=== PATIENT | female | born 1965 | race Two or more races ===

== ENCOUNTER → 2017-10-12 | Emergency (ER) | payer OTHER ==
[~2017-10-12] VITALS: Ht 165.1 cm; Wt 73.0 kg
[~2017-10-12] MED LIST: AMBIEN10 MG; FOLIC ACID1 MG; LEUCOVORIN CALCI5 MG PO; METHOTREXATE SC; METHOTREXATE2.5 MG; NABUMETONE500 MG PO; ORENCIA125 MG/1 M; PAXIL CR25 MG; PERCOCET 5/3251 TAB PO; PREVACID30 MG PO; PROTONIX40 MG; SIMPONI50 MG/0.5 SUBCUTANEO; WELLBUTRIN SR150 MG
== END | disposition home or self-care (01) ==
LOC: ER 19:43
DX: B34.9 Viral infection, unspecified (principal)

== ENCOUNTER 2019-01-17 09:15 | Inpatient (IN) | payer OTHER ==
[~2019-01-17] VITALS: Ht 165.1 cm; Wt 105.7 kg
[2019-01-19] MEDS ORDERED: PAXIL PO (13:41)
[2019-01-19] MEDS ORDERED: CLONAZEP (13:42)
[2019-01-19] MEDS ORDERED: ZANTAC300 MG PO (13:42)
[2019-01-19] MEDS ORDERED: ULTRACET PO ×2 (13:43→13:44)
[2019-02-01] MEDS ORDERED: ULTRACET PO (07:57)
[2019-02-01] MEDS ORDERED: PAXIL CR25 MG PO (07:58)
[2019-02-01] MEDS ORDERED: CLONAZEPAM1 MG (07:58)
== END 2019-02-03 19:54 | DRG 470 ==
LOC: SURH 02-01 06:43 → O/R 02-01 06:43 → RECOVERY 02-01 10:45 → SURH 02-01 11:40 → O/R 02-01 13:22 → RECOVERY 02-01 13:30 → SURH 02-01 16:11
PROVIDERS: ADMIT Orthopaedic Surgery
PROC: 0SRD0J9 Replacement of Left Knee Joint with Synthetic Substitute, Cemented, Open Approach (ICD-10-PCS; principal; 2019-02-01 13:30)
DX: M17.12 Unilateral primary osteoarthritis, left knee (principal); J45.902 Unspecified asthma with status asthmaticus; D62 Acute posthemorrhagic anemia; J22 Unspecified acute lower respiratory infection; I10 Essential (primary) hypertension; Z96.653 Presence of artificial knee joint, bilateral

== ENCOUNTER 2019-06-07 20:11 | Emergency (ER) | payer OTHER ==
[~2019-06-07] VITALS: Ht 165.1 cm; Wt 110.2 kg
[~2019-06-07 20:11] MED LIST changes: +CLONAZEP; +CLONAZEPAM1 MG; +PAXIL CR25 MG PO; +PAXIL PO; +ULTRACET PO; +ZANTAC300 MG PO
[2019-06-07] MEDS ORDERED: ACTEMRA162 MG/0.9 (20:31)
[2019-06-07] MEDS ORDERED: PERCOCET 10-321 EACH (20:31)
[2019-06-08] MEDS ORDERED: MOBIC15 MG PO (07:30)
[2019-06-08] MEDS ORDERED: NORFLEX100MG PO (07:30)
== END 2019-06-08 07:49 | disposition home or self-care (01) ==
LOC: ER 20:11
DX: S60.572A Other superficial bite of hand of left hand, initial encounter (principal); R10.12 Left upper quadrant pain; M54.5 Low back pain; W54.0XXA Bitten by dog, initial encounter; Y93.89 Activity, other specified; Y92.89 Other specified places as the place of occurrence of the external cause; Y99.8 Other external cause status

== ENCOUNTER 2021-08-20 14:27 | Emergency (ER) | payer OTHER ==
[~2021-08-20] VITALS: Ht 152.4 cm; Wt 116.1 kg
[~2021-08-20 14:27] MED LIST changes: +ACTEMRA162 MG/0.9; +MOBIC15 MG PO; +NORFLEX100MG PO; +PERCOCET 10-321 EACH
[2021-08-20] MEDS ORDERED: BUPROPION HCL200 M1 PO (14:44)
== END 2021-08-20 18:19 | disposition home or self-care (01) ==
LOC: ER 14:27
DX: J45.909 Unspecified asthma, uncomplicated (principal); Z88.0 Allergy status to penicillin; Z88.2 Allergy status to sulfonamides

== ENCOUNTER 2022-06-17 14:11 | Outpatient (CLI) | payer OTHER ==
[~2022-06-17 14:11] MED LIST changes: +BUPROPION HCL200 M1 PO
== END 2022-06-17 14:12 | disposition home or self-care (01) ==
LOC: RAD 14:11
PROVIDERS: ATTEND Orthopaedic Surgery
DX: M25.511 Pain in right shoulder (principal)

== ENCOUNTER 2022-08-21 18:27 | Emergency (ER) | payer OTHER ==
[~2022-08-21] VITALS: Ht 162.6 cm; Wt 70.3 kg
== END 2022-08-21 22:14 | disposition home or self-care (01) ==
LOC: ER 18:27
DX: M77.8 Other enthesopathies, not elsewhere classified (principal); Z88.0 Allergy status to penicillin; Z88.2 Allergy status to sulfonamides

== ENCOUNTER 2023-02-25 11:10 | Emergency (ER) | payer OTHER ==
[~2023-02-25] VITALS: Ht 162.6 cm; Wt 115.2 kg
[2023-02-25] MEDS ORDERED: UBRELVY100 MG PO (11:49)
[2023-02-25] MEDS ORDERED: EMGALITY S120 MG/1 M SQ (11:49)
[2023-02-25] MEDS ORDERED: INDERAL XL80 MG (11:49)
== END 2023-02-25 14:52 | disposition home or self-care (01) ==
LOC: ER 11:10
DX: G43.909 Migraine, unspecified, not intractable, without status migrainosus (principal); Z88.0 Allergy status to penicillin; Z88.2 Allergy status to sulfonamides

== ENCOUNTER → 2023-08-17 | Emergency (ER) | payer OTHER ==
[~2023-08-17] VITALS: Ht 165.1 cm; Wt 112.0 kg
[~2023-08-17] MED LIST changes: +EMGALITY S120 MG/1 M SQ; +INDERAL XL80 MG; +UBRELVY100 MG PO
== END | disposition left against medical advice (07) ==
LOC: ER 20:48
DX: Z53.21 Procedure and treatment not carried out due to patient leaving prior to being seen by health care provider (principal)

== ENCOUNTER 2024-01-14 14:36 | Outpatient (CLI) | payer OTHER | END 2024-01-14 14:43 | disposition home or self-care (01) | LOC: RAD 14:36 | PROVIDERS: ATTEND Orthopaedic Surgery | DX: S92.352G Displaced fracture of fifth metatarsal bone, left foot, subsequent encounter for fracture with delayed healing (principal); S82.65XD Nondisplaced fracture of lateral malleolus of left fibula, subsequent encounter for closed fracture with routine healing ==

== ENCOUNTER 2024-01-15 09:35 | Outpatient (CLI) | payer OTHER | END 2024-01-15 09:52 | disposition home or self-care (01) | LOC: TOM 09:35 | PROVIDERS: ATTEND Orthopaedic Surgery | DX: S92.352G Displaced fracture of fifth metatarsal bone, left foot, subsequent encounter for fracture with delayed healing (principal); S82.65XD Nondisplaced fracture of lateral malleolus of left fibula, subsequent encounter for closed fracture with routine healing ==

== ENCOUNTER 2024-01-25 09:05 | Outpatient (CLI) | payer OTHER ==
[2024-01-25 10:18] LABS: HEMATOCRIT 42.3 % (36.0-45.00); HEMOGLOBIN 14.6 g/dL (12.0-15.00); MEAN CORPUSCULAR HEMOGLOBIN 35.5 pg (27.00-32.0); MEAN CORPUSCULAR HGB CONC 34.4 g/dl (32.0-36.0); PLATELET COUNT 219 K/uL (150-450); RED CELL DISTRIBUTION WIDTH 12.8 % (11.5-14.5)
[2024-01-25 10:36] LABS: ALBUMIN 3.9 gm/dL (3.4-5.0); BILIRUBIN TOTAL 0.52 mg/dL (0.3-1.2); CALCIUM 9.9 mg/dL (8.5-10.1); CREATININE SERUM 0.81 mg/dL (0.55-1.02); GFR 71.88; GLOBULINA 3.4 G/DL (2.4-3.5); POTASSIUM 4.24 mEq/L (3.5-5.1); TOTAL PROTEIN 7.3 gm/dL (6.4-8.2)
[2024-01-25 10:40] LABS: INR 1.05
[2024-01-25 11:13] LABS: COL EPI 81 SECONDS (82-175)
[2024-01-25 11:32] LABS: URINE APPEARANCE Clear; URINE BILIRRUBIN Negative (NEGATIVE); URINE BLOOD Negative; URINE COLOR Yellow; URINE GLUCOSE Negative (NEGATIVE); URINE LEUKOCYTE Trace; URINE NITRATE Negative; URINE PROTEIN Negative (NEGATIVE); URINE UROBILINOGEN 0.2 E.U./dl
[2024-01-25 11:33] LABS: URINE BACTERIA 31.4 uL (0.0-1933); URINE EPITHELIAL CELLS 17.1 uL (0.0-38.8); URINE RBC 3.9 uL (0.0-20.8)
== END 2024-01-25 09:06 | disposition home or self-care (01) ==
LOC: RAD 09:05 → LAB 09:05 → RAD 09:06
PROVIDERS: ATTEND Orthopaedic Surgery
DX: D64.9 Anemia, unspecified (principal); E88.89 Other specified metabolic disorders; D68.8 Other specified coagulation defects; N39.0 Urinary tract infection, site not specified; Z22.322 Carrier or suspected carrier of Methicillin resistant Staphylococcus aureus; E11.9 Type 2 diabetes mellitus without complications; I10 Essential (primary) hypertension; Z76.89 Persons encountering health services in other specified circumstances

== ENCOUNTER → 2024-02-08 12:04 | Outpatient (CLI) | payer OTHER ==
[~2024-02-08 12:04] MED LIST changes: +LEVOTHYROXINE25 MCG PO
== END | disposition home or self-care (01) ==
LOC: LAB 12:04
PROVIDERS: ATTEND Orthopaedic Surgery
DX: Z22.322 Carrier or suspected carrier of Methicillin resistant Staphylococcus aureus (principal)

== ENCOUNTER 2024-02-16 05:20 | Day surgery (SDC) | payer OTHER ==
[2024-02-16] MEDS ORDERED: BUPIVACAINE HCL/Mpf 0.5% 10ML VIAL ONE (06:21)
[2024-02-16] MEDS ORDERED: CEFAZOLIN SODIUM 1,000 MG VIAL ONE (07:06)
[2024-02-16] MEDS ORDERED: ISOPROPYL ALCOHOL 30 ML OUNCE TOP ONE (08:30)
[2024-02-16] MEDS ORDERED: BUPIVACAINE HCL 30 ML VIAL IJ ONE (08:30)
[2024-02-16] MEDS ORDERED: CEFAZOLIN SODIUM 1,000 MG VIAL IV ONE (08:30)
== END 2024-02-16 17:20 | disposition home or self-care (01) ==
LOC: CIR.AMB 05:20
PROVIDERS: ATTEND Orthopaedic Surgery
DX: S92.355K Nondisplaced fracture of fifth metatarsal bone, left foot, subsequent encounter for fracture with nonunion (principal); Z88.1 Allergy status to other antibiotic agents; Z88.0 Allergy status to penicillin; Z88.2 Allergy status to sulfonamides
CPT/HCPCS: 28485; L8699

== ENCOUNTER 2024-05-26 14:34 | Outpatient (CLI) | payer OTHER | END 2024-05-26 14:37 | disposition home or self-care (01) | LOC: RAD 14:34 | PROVIDERS: ATTEND Orthopaedic Surgery | DX: S92.355K Nondisplaced fracture of fifth metatarsal bone, left foot, subsequent encounter for fracture with nonunion (principal) ==

== ENCOUNTER 2024-08-31 15:14 | Outpatient (CLI) | payer OTHER | END 2024-08-31 15:19 | disposition home or self-care (01) | LOC: RAD 15:14 | PROVIDERS: ATTEND Orthopaedic Surgery | DX: M25.571 Pain in right ankle and joints of right foot (principal) ==

== ENCOUNTER 2024-09-14 09:21 | Outpatient (CLI) | payer OTHER | END 2024-09-14 09:26 | disposition home or self-care (01) | LOC: MRI 09:21 | PROVIDERS: ATTEND Orthopaedic Surgery | DX: M25.511 Pain in right shoulder (principal) | CPT/HCPCS: 73225 ==

== ENCOUNTER 2024-09-21 12:09 | Outpatient (CLI) | payer OTHER | END 2024-09-21 12:13 | disposition home or self-care (01) | LOC: RAD 12:09 | PROVIDERS: ATTEND Orthopaedic Surgery | DX: M25.571 Pain in right ankle and joints of right foot (principal); M25.572 Pain in left ankle and joints of left foot ==

== ENCOUNTER 2024-11-14 08:33 | Outpatient (CLI) | payer OTHER ==
[2024-11-14 09:25] LABS: HEMATOCRIT 42.4 % (36.0-45.00); HEMOGLOBIN 14.5 g/dL (12.0-15.00); MEAN CELL VOLUME 100.8 fL (80.00-100.00); MEAN CORPUSCULAR HEMOGLOBIN 34.4 pg (27.00-32.0); MEAN CORPUSCULAR HGB CONC 34.2 g/dl (32.0-36.0); PLATELET COUNT 230 K/uL (150-450); RED CELL DISTRIBUTION WIDTH 14.9 % (11.5-14.5)
[2024-11-14 09:45] LABS: PH,URINE 6.5 (5.0-8.0); URINE APPEARANCE Clear; URINE BILIRRUBIN Negative (NEGATIVE); URINE BLOOD Negative; URINE COLOR Yellow; URINE GLUCOSE Negative (NEGATIVE); URINE KETONE Negative (NEGATIVE); URINE LEUKOCYTE Negative; URINE NITRATE Negative; URINE PROTEIN Negative (NEGATIVE); URINE UROBILINOGEN 0.2 E.U./dl
[2024-11-14 09:49] LABS: URINE BACTERIA 9.7 uL (0.0-1933); URINE RBC 2.2 uL (0.0-20.8)
[2024-11-14 09:54] LABS: PARTIAL THROMBOPLASTIN TIME 25.5 SECONDS (22.0-34.0); PROTHROMBIN TIME 10.9 SECONDS (9.0-11.5); URINE EPITHELIAL CELLS 0.9 uL (0.0-38.8); URINE WBC 0.1 uL (0.0-23.2)
[2024-11-14 10:11] LABS: COL EPI 147 SECONDS (82-175)
[2024-11-14 10:18] LABS: ALBUMIN 3.9 gm/dL (3.4-5.0); BILIRUBIN TOTAL 0.46 mg/dL (0.3-1.2); CALCIUM 9.9 mg/dL (8.5-10.1); CREATININE SERUM 0.81 mg/dL (0.55-1.02); GFR 71.88; POTASSIUM 4.18 mEq/L (3.5-5.1); TOTAL PROTEIN 6.9 gm/dL (6.4-8.2)
== END 2024-11-14 08:34 | disposition home or self-care (01) ==
LOC: LAB 08:33
PROVIDERS: ATTEND Orthopaedic Surgery
DX: D64.9 Anemia, unspecified (principal); E88.89 Other specified metabolic disorders; D68.8 Other specified coagulation defects; N39.0 Urinary tract infection, site not specified; Z22.322 Carrier or suspected carrier of Methicillin resistant Staphylococcus aureus; E11.9 Type 2 diabetes mellitus without complications; Z76.89 Persons encountering health services in other specified circumstances; I10 Essential (primary) hypertension

== ENCOUNTER → 2024-11-18 | Emergency (ER) | payer OTHER ==
[~2024-11-18] VITALS: Ht 165.1 cm; Wt 112.9 kg
[~2024-11-18] MED LIST changes: +CIPROFLOXACIN IN 5 % DEXTROSE 400 MG/200 ML PIGGYBAG IV ONE; +KETOROLAC TROMETHAMINE 30 MG VIAL IV ONE; +SODIUM CHLORIDE 0.45 % 500 ML IV ONE
[2024-11-18 17:22] LABS: HEMATOCRIT 43.8 % (36.0-45.00); HEMOGLOBIN 14.9 g/dL (12.0-15.00); MEAN CELL VOLUME 101.2 fL (80.00-100.00); MEAN CORPUSCULAR HEMOGLOBIN 34.5 pg (27.00-32.0); MEAN CORPUSCULAR HGB CONC 34.1 g/dl (32.0-36.0); PLATELET COUNT 221 K/uL (150-450); RED BLOOD COUNT 4.33 M/uL (4.00-6.00); RED CELL DISTRIBUTION WIDTH 14.6 % (11.5-14.5)
[2024-11-18 17:32] LABS: PH,URINE 6.5 (5.0-8.0); URINE APPEARANCE Clear; URINE BILIRRUBIN Negative (NEGATIVE); URINE BLOOD Moderate; URINE COLOR Yellow; URINE GLUCOSE Negative (NEGATIVE); URINE KETONE Negative (NEGATIVE); URINE LEUKOCYTE Large; URINE NITRATE Negative; URINE PROTEIN 30 (NEGATIVE); URINE UROBILINOGEN 0.2 E.U./dl
[2024-11-18 17:33] LABS: URINE RBC 40.5 uL (0.0-20.8); URINE WBC 255.1 uL (0.0-23.2)
[2024-11-18 17:49] LABS: CALCIUM 9.6 mg/dL (8.5-10.1); CREATININE SERUM 0.62 mg/dL (0.55-1.02); GFR 97.86; POTASSIUM 4.51 mEq/L (3.5-5.1)
[2024-11-18 17:55] LABS: URINE BACTERIA > 9821.5 uL (0.0-1933); URINE CAST 0.14 uL (0.0-1.40)
== END | disposition home or self-care (01) ==
LOC: ER 15:47
PROVIDERS: General Practice
DX: N39.0 Urinary tract infection, site not specified (principal); B96.20 Unspecified Escherichia coli [E. coli] as the cause of diseases classified elsewhere; K57.30 Diverticulosis of large intestine without perforation or abscess without bleeding; E03.9 Hypothyroidism, unspecified; F41.9 Anxiety disorder, unspecified; Z88.0 Allergy status to penicillin; Z88.2 Allergy status to sulfonamides

== ENCOUNTER 2024-11-28 06:36 | Day surgery (SDC) | payer OTHER ==
[~2024-11-28 06:36] MED LIST changes: -CIPROFLOXACIN IN 5 % DEXTROSE 400 MG/200 ML PIGGYBAG IV ONE; -KETOROLAC TROMETHAMINE 30 MG VIAL IV ONE; -SODIUM CHLORIDE 0.45 % 500 ML IV ONE
[2024-11-28] MEDS ORDERED: CEFAZOLIN SODIUM 1,000 MG VIAL ONE (08:33)
[2024-11-28] MEDS ORDERED: LIDOCAINE HCL 1%/EPINEPHRINE 20ML VIAL IJ ONE (10:26)
[2024-11-28] MEDS ORDERED: EPINEPHRINE HCL/PF 1 MG/ML AMPUL ONE ×2 (10:26→10:44)
[2024-11-28] MEDS ORDERED: BUPIVACAINE HCL/MPF 0.5% 30ML VIAL ONE (10:26)
[2024-11-28] MEDS ORDERED: SUGAMMADEX SODIUM 200 MG/2 ML VIAL IV ONE (14:06)
[2024-11-28] MEDS ORDERED: MORPHINE SULFATE 4 MG/ML VIAL IV ONE ×3 (15:10→18:30)
[2024-11-29 18:09] VITALS: BP 92/63; O2SAT 100
== END 2024-11-28 20:05 | disposition home or self-care (01) ==
LOC: CIR.AMB 06:36
PROVIDERS: ATTEND Orthopaedic Surgery
DX: M75.121 Complete rotator cuff tear or rupture of right shoulder, not specified as traumatic (principal); M75.21 Bicipital tendinitis, right shoulder; S43.001A Unspecified subluxation of right shoulder joint, initial encounter; M12.811 Other specific arthropathies, not elsewhere classified, right shoulder; Z88.0 Allergy status to penicillin; Z88.2 Allergy status to sulfonamides

== ENCOUNTER 2025-03-07 10:23 | Outpatient (CLI) | payer OTHER | END 2025-03-07 10:31 | disposition home or self-care (01) | LOC: MRI 10:23 | PROVIDERS: ATTEND Orthopaedic Surgery | DX: M06.9 Rheumatoid arthritis, unspecified (principal); M75.121 Complete rotator cuff tear or rupture of right shoulder, not specified as traumatic | CPT/HCPCS: 73222 ==

== ENCOUNTER 2025-04-06 19:32 | Emergency (ER) | payer OTHER ==
[~2025-04-06] VITALS: Ht 162.6 cm; Wt 99.8 kg
[2025-04-06] MEDS ORDERED: KETOROLAC TROMETHAMINE 60 MG VIAL IM ONE ×2 (20:30→20:48)
[2025-04-06] MEDS ORDERED: NORFLEX100MG PO (22:30)
== END 2025-04-06 22:38 | disposition home or self-care (01) ==
LOC: ER 19:32
DX: M54.9 Dorsalgia, unspecified (principal); N39.0 Urinary tract infection, site not specified; Z88.0 Allergy status to penicillin; Z88.2 Allergy status to sulfonamides

== ENCOUNTER 2025-05-02 22:51 | Emergency (ER) | payer OTHER ==
[~2025-05-02] VITALS: Ht 162.6 cm; Wt 112.5 kg
[2025-05-02 23:08] VITALS: BP 153/84; O2SAT 96
[2025-05-03] MEDS ORDERED: KETOROLAC TROMETHAMINE 30 MG VIAL IV STA (00:08)
[2025-05-03] MEDS ORDERED: TRIAMCINOLONE ACETONIDE 40 MG/ML VIAL IM STA (00:08)
[2025-05-03] MEDS ORDERED: ORPHENADRINE CITRATE 30 MG/ML AMPUL IV STA (00:08)
[2025-05-03] MEDS ORDERED: ORPHENADRINE CITRATE 30 MG/ML AMPUL ONE (00:10)
[2025-05-03] MEDS ORDERED: KETOROLAC TROMETHAMINE 60 MG VIAL IM ONE (00:11)
[2025-05-03] MEDS ORDERED: TRIAMCINOLONE ACETONIDE 40 MG/ML VIAL ONE (00:11)
[2025-05-03] MEDS ORDERED: NORFLEX100MG PO (00:15)
[2025-05-03] MEDS ORDERED: TRAMADOL HCL50 MG PO (00:15)
== END 2025-05-03 00:31 ==
LOC: ER 22:51
DX: M54.50 Low back pain, unspecified (principal); Z88.0 Allergy status to penicillin; Z88.2 Allergy status to sulfonamides; M79.605 Pain in left leg